=== PATIENT | female | born 1950 | race Caucasian/White ===

== ENCOUNTER → 2017-04-18 | Outpatient (CLI) | payer OTHER, BC | LOC: BMCIMAGING 08:52 | PROVIDERS: ATTEND Internal Medicine | DX: Z12.31 Encounter for screening mammogram for malignant neoplasm of breast (principal) | CPT/HCPCS: G0202 ==

== ENCOUNTER → 2017-06-05 | Outpatient (CLI) | payer OTHER, BC | LOC: BMCIMAGING 10:10 | PROVIDERS: ATTEND Internal Medicine | DX: Z13.820 Encounter for screening for osteoporosis (principal); M85.80 Other specified disorders of bone density and structure, unspecified site ==

== ENCOUNTER → 2018-04-30 | Outpatient (CLI) | payer OTHER, BC | LOC: BMCIMAGING 12:13 | PROVIDERS: ATTEND Podiatrist Foot & Ankle Surgery | DX: M20.11 Hallux valgus (acquired), right foot (principal) ==

== ENCOUNTER 2018-06-06 05:44 | Day surgery (SDC) | payer OTHER, BC ==
[2018-06-06] MEDS ORDERED: LIDOCAINE 1% 2 ML INJ ONE (06:01)
[2018-06-06] MEDS ORDERED: ceFAZolin 2 GM/DEXTROSE 100 ML IV ONE (06:05)
[2018-06-06] MEDS ORDERED: LIDOCAINE 1% 2 ML INJ ID PRN (06:06)
[2018-06-06] MEDS ORDERED: LR 1,000 ML IV ONE (06:06)
[2018-06-06] MEDS ORDERED: BUPIVACAINE 0.5% 30 ML SDV ONE (06:55)
[2018-06-06] MEDS ORDERED: ceFAZolin 1 GM/5 ML SYR ONE (06:55)
[2018-06-06] MEDS ORDERED: LIDOCAINE 2% 5 ML SDV ONE (06:57)
--- NOTE | 2018-06-06 06:59 | PDHPUP ---
History & Physical Update H&P update statement: This history and physical update is based on an assessment of the patient which was completed after admission or registration (within 24 hours), but prior to the surgery/procedure. H&P update: H&P reviewed & patient examined
--- NOTE | 2018-06-06 07:02 | PDANEPAE ---
ANE History of Present Illness R ankle christina & aikin foot bunionectomy for bunions ANE Past Medical History - Cardiovascular History Hx Hypertension: Yes Hx Arrhythmias: No Hx Chest Pain: No Hx Coronary Artery / Peripheral Vascular Disease: No Hx CHF / Valvular Disease: No Hx Palpitations: No Cardiovascular History Comment: pcp monitors bp medications - Pulmonary History Hx COPD: No Hx Asthma/Reactive Airway Disease: No Hx Recent Upper Respiratory Infection: No Hx Oxygen in Use at Home: No Hx Sleep Apnea: No Sleep Apnea Screening Result - Last Documented: Negative - Neurologic History Hx Cerebrovascular Accident: No Hx Seizures: No Hx Dementia: No - Endocrine History Hx Diabetes: No - Renal History Hx Renal Disorders: No - Liver History Hx Hepatic Disorders: No - Neurological & Psychiatric Hx Hx Neurological and Psychiatric Disorders: No - Cancer History Hx Cancer: No - Congenital Disorder History Hx Congenital Disorders: No - GI History Hx Gastrointestinal Disorders: No - Other Health History Other Health History: wears glasses - Chronic Pain History Chronic Pain: Yes (right foot) - Surgical History Prior Surgeries: total hysterectomy. left bunionectomy. repair of right wrist with hardware. dental implants ANE Review of Systems Review of Systems: - Exercise capacity METS (RN): 4 METS ANE Patient History - Allergies Allergies/Adverse Reactions: No Known Allergies Allergy (Verified 05/29/18 15:37) - Home Medications Home Medications: Estrogen Ring 05/29/18 [Last Taken 06/06/18] Herbals/Supplements -Info Only 05/29/18 [Last Taken Unknown] Lisinopril 05/29/18 [Last Taken 06/05/18] Meloxicam PRN 05/29/18 [Last Taken 05/30/18] - NPO status NPO Since - Liquids (Date): 06/06/18 NPO Since - Liquids (Time): 02:00 NPO Since - Solids (Date): 06/05/18 NPO Since - Solids (Time): 21:00 - Smoking Hx Smoking Status: Never smoked - Family Anes Hx Family Hx Anesthesia Complications: none ANE Labs/Vital Signs - Vital Signs Blood Pressure: 140/99 Heart Rate: 91 Respiratory Rate: 18 O2 Sat (%): 96 Height: 163.83 cm Weight: 56.699 kg ANE Physical Exam - Airway Neck exam: FROM Mallampati Score: Class 1 Mouth exam: normal dental/mouth exam - Pulmonary Pulmonary: no respiratory distress, no rales or rhonchi - Cardiovascular Cardiovascular: regular rate and rhythym, no murmur, rub, or gallop - ASA Status ASA Status: II ANE Anesthesia Plan Anesthesia Plan: GA with mask Total IV Anesthesia: Yes
[2018-06-06] MEDS ORDERED: MIDAZOLAM 2 MG/2 ML VIAL IVP ONE (07:03)
[2018-06-06] MEDS ORDERED: fentaNYL 100 MCG/2 ML INJ ONE (07:23)
[2018-06-06] MEDS ORDERED: PROPOFOL 200 MG/20 ML VIAL ONE ×2 (07:23→07:31)
[2018-06-06] MEDS ORDERED: PROPOFOL/EMULSION 500 MG/50 ML BOTTLE IV ONE (07:42)
[2018-06-06] MEDS ORDERED: NALOXONE HCL 0.4 MG/ML INJ IVP PRN (08:00)
[2018-06-06] MEDS ORDERED: ONDANSETRON 4 MG/2 ML VIAL IVP PRN ×2 (08:00→08:32)
[2018-06-06] MEDS ORDERED: DEXAMETHASONE 4 MG/ML VIAL IVP PRN (08:00)
[2018-06-06] MEDS ORDERED: fentaNYL 100 MCG/2 ML INJ IVP PRN (08:00)
[2018-06-06] MEDS ORDERED: HYDROCODONE/APAP 5/325 TAB PO PRN (08:00)
[2018-06-06] MEDS ORDERED: MEPERIDINE 25 MG/0.5 ML AMP IVP PRN (08:00)
[2018-06-06] MEDS ORDERED: ONDANSETRON DISINTEGRATING 4 MG TAB PO PRN (08:32)
[2018-06-06] MEDS ORDERED: OXYCODONE/APAP 5/325 TAB PO PRN (08:32)
--- NOTE | 2018-06-06 08:34 | POSTOPPROG ---
Post Op Note Date of Operation: 06/06/18 Surgeon: Dago Hensley Commodities Requirements Analyst: none Anesthesiologist: DO Eneida Anesthesia: IV Sedation Pre-op Diagnosis: right, hallux valgus Post-op Diagnosis: same Indication: pain Procedure: first met osteotomy with anahi bunionectomy, right Inf/Abcess present in the surg proc area at time of surgery?: No Depth: Deep Incisional (Fascial) EBL: Minimal Total fluids administered: per anesth Complications: none
[2018-06-06 10:08] VITALS: BP 122/79
--- NOTE | 2018-06-06 12:47 | POSTANESTH ---
Post Anesthetic Evaluation Cardiovascular Status: Normal, Stable Respiratory Status: Normal, Stable Level of Consciousness/Mental Status: Can Participate in Eval, Alert and Oriented Pain Control: Adequate, Prn Tx Ordered Nausea/Vomiting Control: Adequate, Prn Tx Ordered Complications Possibly Related to Anesthesia: None Noted
--- NOTE | 2018-06-07 21:19 | GOP ---
DATE OF OPERATION: 06/06/2018 SURGEON: Dago Hensley DPM CONTACT LENS FLASHING PUNCHER: None. ANESTHESIA: IV general. PREOPERATIVE DIAGNOSIS: Right foot hallux abductovalgus. POSTOPERATIVE DIAGNOSIS: Right foot hallux abductovalgus. PROCEDURE PERFORMED: 1. First metatarsal osteotomy. 2. Tavera bunionectomy. 3. An Sarbjit osteotomy, all 3 of right foot. FINDINGS: SPECIMENS: None. ESTIMATED BLOOD LOSS: Scant. INDICATIONS: Ms Sauer is an otherwise healthy, 67-year-old woman, who presented to my office with a painful right foot bunion deformity. The patient had failed conservative efforts to increase the f unction and remove pain. The patient understands the risks, benefits, and alternatives to the proced ure presented and wishes to proceed. DESCRIPTION OF PROCEDURE: The procedures in detail are as follows: Under mild sedation, the patient was brought to the operating room, placed on the operating table in a supine position. Following in filtration of 2 g of IV Ancef and further IV sedation, a regional forefoot block was obtained with 20 cc of 0.5% Marcaine plain. The foot was then scrubbed, prepped, and draped in the usual aseptic man ner. A sterile pneumatic tourniquet was placed about the patient's well-padded supramalleolar area. An Esmarch bandage was utilized to exsanguinate the patient's right foot and the tourniquet was infl ated to 250 mmHg. Attention was then directed to the area overlying the first metatarsophalangeal joint of the right fo ot, where a roughly 6 cm linear longitudinal incision was made medial and parallel to the tendon of e xtensor hallucis longus. The incision was deepened via sharp and blunt dissection, care being taken to identify and retract all vital neural and vascular structures. All bleeders were ligated and caut erized as necessary. Next, a periosteal and capsular incision was made in line with the skin incisio n consisting of 2 semi-elliptical incisions. These converged to form an ellipse of capsular tissue t hat was resected and passed from the operative field. The periosteal and capsular structures were fr eed of their bony attachments and reflected medially and laterally, thus exposing the head of the fir st metatarsal and the proximal phalanx of the right hallux. At this time, using a sagittal saw, the medial and dorsal eminences were removed. These were passed from the operative field. A lateral soft tissue release was performed via the same incision. The lateral capsule of the first metatarsophalangeal joint was incised. The lateral sesamoid was freed on its distal, proximal, and l ateral attachments. The tendon of adductor hallucis was identified and transected. The soft tissue release freed up the hallux from its lateralizing contracture. At this time, the first metatarsal os teotomy was performed via an offset V-type osteotomy from medial to lateral within the transverse pepe ne. The apex was in the center of the metatarsal head. The plantar arm was directed plantar proxima lly and the long arm was directed dorsal and proximally. This was performed with a sagittal saw. Th e capital fragment was translated laterally and held in place with a K-wire. This new position was c hecked under intraoperative fluoroscopy and noted to be adequate. At this time, using standard AO pr inciples and techniques, 2 headless screws, measuring 3.5 x 14 mm, were placed across the osteotomy s ite. Upon validation of the screws, compression was noted to be excellent. Next, utilizing the sagi ttal saw, the remaining medial bone shelf was resected and passed from the operative field. The roug h edges were smoothed out with a bur. At this time, the Sarbjit osteotomy consisted of a closing wedge osteotomy with the apex of the wedge la terally and the base of it medially within the proximal shaft of the right hallux proximal phalanx. The osteotomy was performed. The wedge of bone was resected and passed from the operative field. Th e wedge was closed and then held in place with a Nitinol staple from [employer], measuring 9 mm x 10 mm. Again, intraoperative fluoroscopy was utilized to check for compression of the osteotomy as well as placement of the hardware, and noted to be excellent. At this time, the wound was flushed with copi ous amounts of sterile normal saline, and a medial capsulorrhaphy was performed further correcting th e position of the right hallux. The periosteal and capsular tissues during this capsulorrhaphy were closed with 2-0 Vicryl. Subcutaneous tissues were closed with a 3-0 Monocryl, and the skin was close d with a running baseball-type suture of 4-0 Prolene. The wound was dressed with Xeroform and a ster ile compressive dressing consisting of 4x4s and Maritza. Tourniquet was dropped and a prompt hyperemic response was noted to all digits of the right foot, and an Vu bandage was also applied. The patient tolerated the procedure and anesthesia well. She was transferred to the recovery room wi th vital signs stable and vascular status intact to all digits of the right foot. Following a period of postoperative monitoring, patient will be discharged home with the following written and oral pos top instructions: 1. Keep dressing clean, dry, intact. 2. Use boot at all times when ambulating. 3. Ice and elevate as instructed. 4. All followup questions and concerns should be directed toward [facility] at [phone]. HEMOSTASIS: Pneumatic ankle tourniquet for 47 minutes at 250 mmHg. MATERIALS: Two 3.5 mm x 14 mm headless screws and a [employer]ite Nitinol staple, measuring 10 mm x 9 mm, as well as a 2 cm x 3 cm amniotic tissue membrane [facility] [employer] [facility] [employer]. INJECTABLES: 20 cc of 0.5% Marcaine plain. COMPLICATIONS: None. /[id number]/MODL
== END 2018-06-06 10:18 | disposition home or self-care (01) ==
LOC: FSGY 05:44
PROVIDERS: ATTEND Podiatrist Foot & Ankle Surgery
PROC: 0QBN0ZZ Excision of Right Metatarsal, Open Approach (ICD-10-PCS; principal; 2018-06-06 07:15)
DX: M21.611 Bunion of right foot (principal)
CPT/HCPCS: C1713; C9399; J0690; J2250; J2704; J3010

== ENCOUNTER → 2018-06-19 | Outpatient (CLI) | payer OTHER, BC | LOC: BMCIMAGING 11:40 | PROVIDERS: ATTEND Podiatrist Foot & Ankle Surgery | DX: Z09 Encounter for follow-up examination after completed treatment for conditions other than malignant neoplasm (principal) ==

== ENCOUNTER → 2018-07-14 | Outpatient (CLI) | payer OTHER, BC | LOC: BMCIMAGING 14:17 | PROVIDERS: ATTEND Podiatrist Foot & Ankle Surgery | DX: Z98.890 Other specified postprocedural states (principal); M20.11 Hallux valgus (acquired), right foot ==